=== PATIENT | female | born 1995 ===

== ENCOUNTER 2018-03-24 15:34 | Emergency (ER) | payer OTHER ==
[~2018-03-24 15:34] MED LIST: ISOVUE-370 76%-LOCM 1 ML ONE
[2018-03-24 17:13] LABS: #Basophils 0.1 thou/uL (0.0-0.2); #Eosinphils 0.1 thou/uL (0.0-0.7); #Lymphocytes 3.2 thou/uL (1.20-3.40); #Monocytes 0.6 thou/uL (0.11-0.59); #Neutrophils 2.9 thou/uL (1.40-6.50); %Basophils 1.1 % (0.0-1.0); %Lymphocytes 46.6 % (28.0-48.0); %Monocytes 8.2 % (0.0-4.0); %Neutrophils 42.1 % (31.0-61.0); Bilirubin Negative (Negative); Blood, Urine Negative (Negative); Clarity CLOUDY (Clear); Glucose, Urine (Dipstick) Negative (Negative); Leukocyte Negative (Negative); Mean Corpuscular HGB CONC 33.7 g/dL (32.0-36.0); Mean Corpuscular Volume 92.1 fL (78.0-98.0); Nitrite Negative (Negative); Platelet Count 329 thou/uL (130-400); Protein, Urine (Dipstick) Negative (Neg-Trace); RBC Distribution Width 10.5 % (11.5-14.5); Red Blood Cell (RBC) Count 4.84 mill/uL (4.00-5.20); Specific Gravity, Urine 1.008 (1.002-1.036); Urobilinogen 0.2 mg/dL (0.2-1.0); White Blood Cell (WBC) Count 6.8 thou/uL (4.8-10.8); pH, Urine 7.5 (5.0-9.0)
[2018-03-24 17:33] LABS: ALT (SGPT) 14 U/L (8-55); AST (SGOT) 20 U/L (5-34); Albumin 4.7 g/dL (3.5-5.0); Alkaline Phosphatase 104 U/L (40-150); Anion Gap 11 mmol/L (10-20); BHCG - Serum Negative (NEGATIVE); BUN (Urea Nitrogen) 8 mg/dL (7.0-18.7); Bilirubin, Total 0.2 mg/dL (0.2-1.2); Calc. Creatinine Clearance 0 mL/min (70-130); Calcium 9.5 mg/dL (7.8-10.44); Carbon Dioxide 27 mmol/L (22-29); Chloride 106 mmol/L (98-107); Estimated GFR-MDRD 89; Globulin 3.3 g/dL (2.4-3.5); Glucose 76 mg/dL (70-105); Lipase 37 U/L (8-78); Potassium 3.9 mmol/L (3.5-5.1); Pregs Control Background? CLEAR/WHITE (CLR/WHITE); Pregs Control Bar Appear? YES (CONTROL BAR); Sodium 140 mmol/L (136-145)
--- NOTE | 2018-03-24 18:18 | CT ---
CT OF ABDOMEN AND PELVIS 03/24/18 COMPARISON: None. HISTORY: Injury, trauma, pain. TECHNIQUE: Serial axial CT imaging at 5 mm intervals from lung bases through pubic symphysis with IV contrast. C oronal reformatted imaging obtained. FINDINGS: The imaged lung bases are unremarkable. No free intraperitoneal air. Trace free fluid noted in the pe lvic cul-de-sac. The liver, spleen, gallbladder, pancreas, adrenal glands, and kidneys are unremarkable. The vascular structures appear patent. There is no lymphadenopathy evident within the abdomen or pelv is. No bowel inflammatory change or evidence of bowel obstruction is noted. Review of the osseous structures demonstrates no acute findings. IMPRESSION: No acute findings. POS: [facility]
== END 2018-03-24 18:37 | disposition home or self-care (01) ==
LOC: ERS 15:34
DX: S39.91XA Unspecified injury of abdomen, initial encounter (principal); F41.9 Anxiety disorder, unspecified; F32.9 Major depressive disorder, single episode, unspecified; Z79.899 Other long term (current) drug therapy; W50.1XXA Accidental kick by another person, initial encounter; Y92.238 Other place in hospital as the place of occurrence of the external cause
CPT/HCPCS: 74177; 80053; 81003; 83690; 84703; 85025